=== PATIENT | male | born 1995 ===

== ENCOUNTER 2018-12-14 18:45 | Emergency (ER) | payer OTHER ==
[~2018-12-14] VITALS: Ht 172.7 cm; Wt 65.8 kg
== END 2018-12-14 20:50 | disposition home or self-care (01) ==
LOC: ER 18:45
DX: R20.2 Paresthesia of skin (principal); F17.210 Nicotine dependence, cigarettes, uncomplicated
CPT/HCPCS: 73080; 99283-25